=== PATIENT | female | born 1970 | race Caucasian/White ===

== ENCOUNTER → 2018-08-07 | Outpatient (CLI) | payer SELFPAY ==
[2018-08-07 08:08] LABS: Basophils # (A) 0.1 k/uL (0-0.2); Basophils % (A) 1 %; Eosinophils # (A) 0.3 k/uL (0-0.7); Eosinophils % (A) 3 %; HCT 48.3 % (34.0-46.0); HGB 15.3 gm/dL (11.4-16.0); Lymphocytes % (A) 10 %; MCH 33.4 pg (25.0-35.0); MCHC 31.6 g/dL (31.0-37.0); MCV 105.6 fL (80.0-100.0); Macrocytosis Moderate; Mean Platelet Volume 6.8; Monocytes # (A) 0.6 k/uL (0-1.0); Monocytes % (A) 6 %; Neutrophils # (A) 8.3 k/uL (1.3-7.7); Neutrophils % (A) 79 %; Platelet Count 277 k/uL (150-450); RBC 4.57 m/uL (3.80-5.40); RDW 14.7 % (11.5-15.5); WBC 10.5 k/uL (3.8-10.6)
[2018-08-07 11:17] LABS: Albumin 4.5 g/dL (3.80-4.90); Albumin/Globulin Ratio 1.88 (1.60-3.17); Anion Gap 10.3 mmol/L (4.00-12.00); Calcium 9.7 mg/dL (8.7-10.3); Carbon Dioxide 22.7 mmol/L (21.6-31.8); Globulin 2.4 g/dL (1.6-3.3); Potassium 4.2 mmol/L (3.5-5.5); Total Bilirubin 0.9 mg/dL (0.3-1.2); Total Protein 6.9 g/dL (6.2-8.2)
[2018-08-07 11:19] LABS: Glucose 2 Hour 278 mg/dL
[2018-08-07 11:24] LABS: T4, Free (Free Thyroxine) 1.3 ng/dL (0.80-1.80)
== END | disposition home or self-care (01) ==
LOC: LABWHC1 07:17
PROVIDERS: ATTEND Psychiatry & Neurology Neurology
DX: E55.9 Vitamin D deficiency, unspecified (principal); G90.09 Other idiopathic peripheral autonomic neuropathy
CPT/HCPCS: 36415; 80053; 82306; 82607; 82951; 84207; 84439; 84443; 84481; 85025

== ENCOUNTER 2020-07-14 11:09 | Emergency (ER) | payer SELFPAY ==
[2020-07-14 11:15] VITALS: TEMP 98.4
[2020-07-14] MEDS ORDERED: KETOROLAC 15 MG/ML 1 ML VIAL IVP STA (11:40)
--- NOTE | 2020-07-14 12:04 | XR ---
EXAMINATION TYPE: XR chest 2V DATE OF EXAM: 07/14/2020 COMPARISON: None HISTORY: 49-year-old female with chest pain TECHNIQUE: PA and lateral views FINDINGS: The cardiomediastinal silhouette, aorta, and pulmonary vasculature are within normal limits. Bilatera l breast implants cast focal hazy lower lung densities on the frontal view. Otherwise, no consolidati on or pleural effusion seen. IMPRESSION: Density from bilateral breast implants noted. Otherwise, no acute cardiopulmonary process.
--- NOTE | 2020-07-14 12:07 | ED ---
General Adult HPI - General Chief complaint: Chest Pain Stated complaint: Chest Pain Time Seen by Provider: 07/14/20 11:10 Source: patient, RN notes reviewed, old records reviewed Mode of arrival: wheelchair Limitations: no limitations - History of Present Illness Initial comments: This is a 49-year-old female presents emergency Department complaining of anterior chest pain which she states is only there she takes a deep breath. Patient states pressing on it does not hurt but taking a deep breath causes sharp pain in the center. Patient states as soon as she stops taking deep breaths the pain is gone per patient states his been ongoing since . Patient states she is a smoker and she has positive family history of heart disease. Patient denies high blood pressure diabetes or high cholesterol. Patient denies any swelling to legs or calf tenderness. Patient denies any abdominal pain patient denies nausea vomiting diarrhea. Patient denies any recent fever chills or cough per patient denies headache patient denies any lightheadedness or dizziness. - Related Data Home Medications Medication Instructions Recorded Confirmed traMADol HCl [Ultram] 50 mg PO BID PRN 07/14/20 07/14/20 Allergies Allergy/AdvReac Type Severity Reaction Status Date / Time No Known Allergies Allergy Verified 07/14/20 12:20 Review of Systems ROS Statement: Those systems with pertinent positive or pertinent negative responses have been documented in the HPI. ROS Other: All systems not noted in ROS Statement are negative. Past Medical History Additional Past Medical History / Comment(s): neuropathy History of Any Multi-Drug Resistant Organisms: None Reported Past Surgical History: No Surgical Hx Reported Past Psychological History: No Psychological Hx Reported Smoking Status: Current every day smoker Past Alcohol Use History: Daily Past Drug Use History: None Reported General Exam - General Exam Comments Initial Comments: GENERAL: Patient is well-developed and well-nourished. Patient is nontoxic and well- hydrated and is in no acute distress. ENT: Neck is soft and supple. No significant lymphadenopathy is noted. Oropharynx is clear. Moist mucous membranes. Neck has full range of motion without eliciting any pain. EYES: The sclera were anicteric and conjunctiva were pink and moist. Extraocular movements were intact and pupils were equal round and reactive to light. Eyelids were unremarkable. PULMONARY: Unlabored respirations. Good breath sounds bilaterally. No audible rales rhonchi or wheezing was noted. CARDIOVASCULAR: There is a regular rate and rhythm without any murmurs gallops or rubs. Chest pain is not reproducible but upon deep breathing it does cause sharp pain. ABDOMEN: Soft and nontender with normal bowel sounds. SKIN: Skin is clear with no lesions or rashes and otherwise unremarkable. NEUROLOGIC: Patient is alert and oriented x3. Cranial nerves II through XII are grossly intact. Motor and sensory are also intact. Normal speech, volume and content. Symmetrical smile. MUSCULOSKELETAL: Normal extremities with adequate strength and full range of motion. No lower extremity swelling or edema. No calf tenderness. LYMPHATICS: No significant lymphadenopathy is noted PSYCHIATRIC: Normal psychiatric evaluation Limitations: no limitations Course Vital Signs 07/14/20 07/14/20 07/14/20 11:12 13:00 14:09 Temperature 98.4 F Pulse Rate 91 72 61 Respiratory 18 19 18 Rate Blood Pressure 160/99 107/72 107/72 O2 Sat by Pulse 96 98 99 Oximetry Medical Decision Making - Medical Decision Making EKG shows normal sinus rhythm at 75 bpm CO interval is 146 dresses 86 QT interval is 42 QTC is 448. Patient's EKG shows no ST segment elevation or depression. Chest x-ray shows no acute abnormality. Patient's d-dimer was elevated so I did a CT to rule out PE. There was no PE and no pulmonary process noted. - Lab Data Result diagrams: 07/14/20 12:08 07/14/20 12:08 Lab Results 07/14/20 07/14/20 07/14/20 Range/Units 12:08 12:08 12:08 WBC 5.1 (3.8-10.6) k/uL RBC 4.73 (3.80-5.40) m/uL Hgb 15.9 (11.4-16.0) gm/dL Hct 47.8 H (34.0-46.0) % MCV 101.0 H (80.0-100.0) fL MCH 33.7 (25.0-35.0) pg MCHC 33.3 (31.0-37.0) g/dL RDW 13.4 (11.5-15.5) % Plt Count 164 (150-450) k/uL MPV 7.7 Neutrophils % 59 % Lymphocytes % 26 % Monocytes % 7 % Eosinophils % 2 % Basophils % 2 % Neutrophils # 3.0 (1.3-7.7) k/uL Lymphocytes # 1.3 (1.0-4.8) k/uL Monocytes # 0.4 (0-1.0) k/uL Eosinophils # 0.1 (0-0.7) k/uL Basophils # 0.1 (0-0.2) k/uL Macrocytosis Slight PT 10.0 (9.0-12.0) sec INR 0.9 (<1.2) APTT 22.3 (22.0-30.0) sec D-Dimer 0.62 H (<0.60) mg/L FEU Sodium 144 (137-145) mmol/L Potassium 3.7 (3.5-5.1) mmol/L Chloride 104 (98-107) mmol/L Carbon Dioxide 25 (22-30) mmol/L Anion Gap 15 mmol/L BUN 10 (7-17) mg/dL Creatinine 0.50 L (0.52-1.04) mg/dL Est GFR (CKD-EPI)AfAm >90 (>60 ml/min/1.73 sqM) Est GFR (CKD-EPI)NonAf >90 (>60 ml/min/1.73 sqM) Glucose 85 (74-99) mg/dL Calcium 9.5 (8.4-10.2) mg/dL Magnesium 1.6 (1.6-2.3) mg/dL Total Bilirubin 0.9 (0.2-1.3) mg/dL AST 129 H (14-36) U/L ALT 70 H (4-34) U/L Alkaline Phosphatase 99 (38-126) U/L Troponin I (0.000-0.034) ng/mL Total Protein 8.4 H (6.3-8.2) g/dL Albumin 5.0 (3.5-5.0) g/dL 07/14/20 Range/Units 12:08 WBC (3.8-10.6) k/uL RBC (3.80-5.40) m/uL Hgb (11.4-16.0) gm/dL Hct (34.0-46.0) % MCV (80.0-100.0) fL MCH (25.0-35.0) pg MCHC (31.0-37.0) g/dL RDW (11.5-15.5) % Plt Count (150-450) k/uL MPV Neutrophils % % Lymphocytes % % Monocytes % % Eosinophils % % Basophils % % Neutrophils # (1.3-7.7) k/uL Lymphocytes # (1.0-4.8) k/uL Monocytes # (0-1.0) k/uL Eosinophils # (0-0.7) k/uL Basophils # (0-0.2) k/uL Macrocytosis PT (9.0-12.0) sec INR (<1.2) APTT (22.0-30.0) sec D-Dimer (<0.60) mg/L FEU Sodium (137-145) mmol/L Potassium (3.5-5.1) mmol/L Chloride (98-107) mmol/L Carbon Dioxide (22-30) mmol/L Anion Gap mmol/L BUN (7-17) mg/dL Creatinine (0.52-1.04) mg/dL Est GFR (CKD-EPI)AfAm (>60 ml/min/1.73 sqM) Est GFR (CKD-EPI)NonAf (>60 ml/min/1.73 sqM) Glucose (74-99) mg/dL Calcium (8.4-10.2) mg/dL Magnesium (1.6-2.3) mg/dL Total Bilirubin (0.2-1.3) mg/dL AST (14-36) U/L ALT (4-34) U/L Alkaline Phosphatase (38-126) U/L Troponin I <0.012 (0.000-0.034) ng/mL Total Protein (6.3-8.2) g/dL Albumin (3.5-5.0) g/dL Disposition Clinical Impression: Chest wall pain Disposition: HOME SELF-CARE Instructions (If sedation given, give patient instructions): Chest Pain (ED) Referrals: Rae Mason MD [Primary Care Provider] - 1-2 days Time of Disposition: 14:50
[2020-07-14 12:21] LABS: ALT 70 U/L (4-34); AST 129 U/L (14-36); African American GFR (CKD) >90 (>60 ml/min/1.73 sqM); Alkaline Phosphatase 99 U/L (38-126); Anion Gap 15 mmol/L; Blood Urea Nitrogen 10 mg/dL (7-17); Calcium 9.5 mg/dL (8.4-10.2); Carbon Dioxide 25 mmol/L (22-30); Chloride 104 mmol/L (98-107); Glucose 85 mg/dL (74-99); Magnesium 1.6 mg/dL (1.6-2.3); Non-African American GFR(CKD) >90 (>60 ml/min/1.73 sqM); Potassium 3.7 mmol/L (3.5-5.1); Sodium 144 mmol/L (137-145); Total Bilirubin 0.9 mg/dL (0.2-1.3); Total Protein 8.4 g/dL (6.3-8.2)
[2020-07-14 12:27] LABS: INR 0.9 (<1.2); Partial Thromboplastin Time 22.3 sec (22.0-30.0)
[2020-07-14 12:39] LABS: Basophils # (A) 0.1 k/uL (0-0.2); Basophils % (A) 2 %; Eosinophils # (A) 0.1 k/uL (0-0.7); Eosinophils % (A) 2 %; HCT 47.8 % (34.0-46.0); HGB 15.9 gm/dL (11.4-16.0); Lymphocytes # (A) 1.3 k/uL (1.0-4.8); Lymphocytes % (A) 26 %; MCH 33.7 pg (25.0-35.0); MCHC 33.3 g/dL (31.0-37.0); Macrocytosis Slight; Mean Platelet Volume 7.7; Monocytes # (A) 0.4 k/uL (0-1.0); Monocytes % (A) 7 %; Neutrophils % (A) 59 %; Platelet Count 164 k/uL (150-450); RBC 4.73 m/uL (3.80-5.40); RDW 13.4 % (11.5-15.5); WBC 5.1 k/uL (3.8-10.6)
[2020-07-14 12:50] LABS: D-Dimer 0.62 mg/L FEU (<0.60)
[2020-07-14 13:01] VITALS: BP 107/72
[2020-07-14 14:11] VITALS: PULSE 61; RESP 18
--- NOTE | 2020-07-14 14:25 | CT ---
EXAMINATION TYPE: CT chest angio for PE DATE OF EXAM: 07/14/2020 COMPARISON: HISTORY: Chest pain with elevated d-dimer. CT DLP: 237.7 mGycm Automated exposure control for dose reduction was used. CONTRAST: CT Chest for pulmonary embolism performed with with IV Contrast, patient injected with 56 mL of Isovu e 370. FINDINGS: LUNGS: The lungs are grossly clear, there is no concerning parenchymal mass or nodule identified. T here is no pleural effusion or pneumothorax seen. The tracheobronchial tree is patent. MEDIASTINUM: There is satisfactory enhancement of the pulmonary artery and its branches, there is no CT evidence for pulmonary embolism. Satisfactory enhancement of the thoracic aorta without aneurysm or dissection. There are no greater than 1 cm hilar or mediastinal lymph nodes. No cardiomegaly or pericardial effusion is seen. OTHER: Visualized liver is prominent and heterogeneously hypodense suggesting diffuse fatty infiltra tion. Rim calcified subglandular bilateral breast implants are noted. IMPRESSION: No CT evidence for acute pulmonary embolism. No suspicious acute pulmonary process.
== END 2020-07-14 15:22 | disposition home or self-care (01) ==
LOC: EC 11:09
DX: R07.89 Other chest pain (principal); F17.200 Nicotine dependence, unspecified, uncomplicated; Z82.49 Family history of ischemic heart disease and other diseases of the circulatory system
CPT/HCPCS: 36415; 93005; 85379; 80053; 83735; 84484; 85025; 85610; 85730; 71046; 71275; 99285; 96374; J1885; Q9967

== ENCOUNTER → 2024-10-29 | Outpatient (CLI) | payer BC ==
--- NOTE | 2024-10-29 08:37 | CTL ---
EXAMINATION TYPE: CT Low Dose Lung DATE OF EXAM: 10/29/2024 8:22 AM COMPARISON: 07/14/2020 CLINICAL INDICATION: Female, 53 years old with history of Z12.2, F17.210, current smoker 1/2 pack a d ay for 30 years, History of tobacco use. TECHNIQUE: Low dose computed tomography scan was performed through the chest at 1 mm thick sections a nd reconstructed images in multiple planes at 1 mm and [address] DLP: 83 mGycm, CT CTDI: 2.2 mGy, Automated exposure control for dose reduction was used. CT DIAGNOSTIC QUALITY: Satisfactory FINDINGS: Bilateral breast implants with calcified capsules. Heart normal size without pericardial effusion. Mild LAD coronary artery calcifications are present. Aorta normal caliber with conventional arterial vessel branching anatomy. There is a peripherally calcified nodule of the inferior thyroid isthmus measuring 7 mm which is unch anged. No thoracic lymphadenopathy by CT size criteria. Mild diffuse bronchial wall thickening. Minimal emphysematous change. Mild biapical pleural-parenchym al scarring. No consolidation or pleural effusion. Some strandy dependent atelectasis posterior lower lungs. 4 mm lateral right upper lobe pulmonary nodule on baseline screening also noted to be unchanged from 2020. No suspicious pulmonary nodules seen. Visualized upper abdomen shows possible mild fatty infiltration of the liver given low attenuation. Bones: Spinal stimulator resected along the lower thoracic spinal canal. IMPRESSION: 1. LungRADS 2, benign. A solitary 4 mm pulmonary nodule on baseline screening also noted to be stable from 2020. 2. COPD with minimal emphysema. 3. There may be some underlying mild fatty infiltration of the liver. Correlate with LFTs, lipid prof ile, and patient risk factors. CT LUNG RAD AND CT CHEST RECOMMENDATION: Lung-Rad 2 Benign Appearance or Behavior: Continue annual sc reening with LDCT in 12 months. S Modifier (other clinically significant findings): None [facility], , 10/29/2024 8:34 AM
== END | disposition home or self-care (01) ==
LOC: RADCTMAIN 07:56
DX: Z12.2 Encounter for screening for malignant neoplasm of respiratory organs (principal); J43.9 Emphysema, unspecified; F17.210 Nicotine dependence, cigarettes, uncomplicated; J44.9 Chronic obstructive pulmonary disease, unspecified; R91.1 Solitary pulmonary nodule
CPT/HCPCS: 71271